=== PATIENT | female | born 1980 | race Caucasian/White ===

== ENCOUNTER → 2018-10-02 | Outpatient (CLI) | payer SELFPAY ==
[2018-10-02 15:05] LABS: BASO % 0.1 % (0.0-1.0); EOS # 0.2 10^3/uL (0.0-0.50); EOS % 1.9 % (0.0-3.0); HEMATOCRIT 30.5 % (36.0-47.0); HEMOGLOBIN 9.9 g/dl (12.0-15.5); IMMATURE GRANULOCYTE % 1.2 % (0-3.0); LYMPH # 1.1 10^3/uL (1.5-4.5); LYMPH % 14.1 % (24.0-44.0); MEAN CORPUSCULAR HEMOGLOBIN 29.1 pg (27.0-33.0); MEAN CORPUSCULAR HGB CONC 32.5 g/dl (32.0-36.5); MEAN CORPUSCULAR VOLUME 89.7 fl (80.0-96.0); MONO # 0.5 10^3/uL (0.0-0.8); MONO % 6.5 % (0.0-5.0); NEUTROPHILS # 6.1 10^3/uL (1.8-7.7); NEUTROPHILS % 76.2 % (36.0-66.0); PLATELET COUNT, AUTOMATED 231 10^3/uL (150-450); RED CELL DISTRIBUTION WIDTH 14.8 % (11.5-14.5)
[2018-10-02 15:29] LABS: GLUCOSE CHALLENGE TEST 1 HOUR 150 MG/DL (LESS THAN 140)
[2018-10-02 15:55] LABS: RUBELLA IgG QUALITATIVE IMMUNE (IMMUNE)
[2018-10-02 15:56] LABS: HBsAg Prenatal NEGATIVE (NEGATIVE)
[2018-10-02 16:24] LABS: HIV 1&2 SCREEN CENTAUR NEGATIVE (NEGATIVE)
[2018-10-02 16:37] LABS: CHLAMYDIA DNA AMPLIFICATION NEGATIVE (NEGATIVE); GC DNA AMPLIFICATION NEGATIVE (NEGATIVE)
== END ==
LOC: M LAB 12:24
DX: Z36.89 Encounter for other specified antenatal screening (principal); O09.523 Supervision of elderly multigravida, third trimester
CPT/HCPCS: 82950

== ENCOUNTER → 2018-10-30 | Outpatient (REF) | payer SELFPAY | LOC: M LAB REF 13:18 | DX: O09.523 Supervision of elderly multigravida, third trimester (principal) ==

== ENCOUNTER 2018-11-13 18:32 | Inpatient (IN) | payer SELFPAY ==
[2018-11-13] MEDS ORDERED: PENICILLIN G POTASSIUM IV 5 MU in D5W MINI-BAG PLUS 100 ML IV (19:19)
[2018-11-13] MEDS ORDERED: LR 1,000 ML IV (19:30)
[2018-11-13] MEDS ORDERED: OXYTOCIN 30 UNITS IN 0.9% NaCl 500ML IV BAG (J2590) As Ordered (19:39)
[2018-11-13] MEDS ORDERED: OXYTOCIN DRIP 30 UNITS in APPROPRIATE DILUENT 1 EA IV (20:16)
[2018-11-13] MEDS ORDERED: DIBUCAINE 1% OINTMENT 30GM TOP (20:30)
[2018-11-13] MEDS ORDERED: RHOGAM 300 MCG (1500 IU) INJ (J2790) IM (20:30)
[2018-11-13] MEDS ORDERED: ANUSOL HC CREAM 30GM TOP (20:30)
[2018-11-13] MEDS ORDERED: DOCUSATE SODIUM 100 MG CAP PO (20:30)
[2018-11-13] MEDS ORDERED: METHYLERGONOVINE MALEATE 0.2 MG TAB PO (20:30)
[2018-11-13] MEDS ORDERED: ACETAMINOPHEN 500 MG TAB PO (20:30)
[2018-11-13] MEDS ORDERED: MEASLES,MUMPS,RUBELLA VACCINE INJ (MMR-II) (90707) SC (20:30)
[2018-11-13 20:44] LABS: HEMATOCRIT 35.2 % (36.0-47.0); HEMOGLOBIN 11.3 g/dl (12.0-15.5); MEAN CORPUSCULAR HEMOGLOBIN 28.3 pg (27.0-33.0); MEAN CORPUSCULAR HGB CONC 32.1 g/dl (32.0-36.5); PLATELET COUNT, AUTOMATED 244 10^3/uL (150-450); RED CELL DISTRIBUTION WIDTH 14.6 % (11.5-14.5); WHITE BLOOD COUNT 8.8 10^3/uL (4.0-10.0)
[2018-11-13] MEDS ORDERED: PENICILLIN G POTASSIUM IV 2.5 MU in APPROPRIATE DILUENT 1 EA IV (23:30)
[2018-11-14] MEDS: PRENATAL VITAMINS CHEWABLE TABLET PO (08:12)
[2018-11-14] MEDS: IBUPROFEN 800 MG TAB PO (08:13)
== END 2018-11-14 11:10 | disposition home or self-care (01) | DRG 560 ==
LOC: M LDO 18:32 → M OBS 11-14 10:39 → M LDI 19:18 → M OBS 22:15
PROC: 10E0XZZ Delivery of Products of Conception, External Approach (ICD-10-PCS; principal; 2018-11-13)
PROC: 10907ZC Drainage of Amniotic Fluid, Therapeutic from Products of Conception, Via Natural or Artificial Opening (ICD-10-PCS; 2018-11-13)
DX: O80 Encounter for full-term uncomplicated delivery (principal); Z37.0 Single live birth; Z3A.38 38 weeks gestation of pregnancy